=== PATIENT | female | born 1985 | race Caucasian/White ===

== ENCOUNTER 2023-07-27 07:29 | Day surgery (SDC) | payer OTHER ==
[2023-07-27] VITALS (243 sets, daily range): BP systolic 81–118; BP diastolic 33–81
[~2023-07-27] VITALS: Ht 160 cm; Wt 66.6 kg
[2023-07-27] MEDS ORDERED: CYANOCOBALAMIN 500 MCG/TAB ( B12) PO PRN (07:30)
[2023-07-27] MEDS ORDERED: FAMOTIDINE 20 MG/TAB PO PRN (07:30)
[2023-07-27] MEDS ORDERED: LACTATED RINGER'S 1,000 ML IV PRN ×3 (07:30→19:00)
[2023-07-27] MEDS ORDERED: diazePAM 5 MG/TAB PO PRN ×2 (07:30→08:30)
[2023-07-27] MEDS ORDERED: SCOPOLAMINE 1.5 MG DIS TD PRN (07:30)
[2023-07-27] MEDS ORDERED: ALBUTEROL SULFATE 2.5 MG VIAL IN PRN (07:30)
[2023-07-27] MEDS ORDERED: cloNIDine HCL 0.1 MG/TAB PO PRN (07:30)
[2023-07-27] MEDS ORDERED: PANTOPRAZOLE SODIUM Sesquihydr 40 MG/TAB PO PRN (07:30)
[2023-07-27] MEDS ORDERED: ASCORBIC ACID 3,000 MG in SODIUM CHLORIDE 0.9% 1,000 ML IV SCH (08:00)
[2023-07-27] MEDS ORDERED: ASCORBIC ACID 4,000 MG in SODIUM CHLORIDE 0.9% 1,000 ML IV SCH (08:00)
[2023-07-27] MEDS ORDERED: XANAX2 MG PO (08:53)
[2023-07-27] MEDS ORDERED: AFRIN PUMP MIS0.05 % IN (08:54)
[2023-07-27 08:55] LABS: BASO% 0.5 % (0-3); EOS% 17.7 % (0-8); HEMATOCRIT 41.9 % (37.0-47.0); HEMOGLOBIN 13.8 g/dl (12.0-16.0); IMMATURE GRANULOCYTES 0.2 % (0.0-5.0); LYMPH% 27.3 % (15-41); MEAN CELL VOLUME 82.8 fL CALC (80.0-100.0); MEAN CORPUSCULAR HGB 27.3 pG CALC (26.0-32.0); MEAN CORPUSCULAR HGB CONC 32.9 g/dL CAL (32.0-36.0); MONO% 8.1 % (2-13); NEUT# 3.86 thou/uL (2.00-7.15); NEUT% 46.2 % (42-76); RED BLOOD COUNT 5.06 mill/uL (4.20-5.60)
[2023-07-27] MEDS ORDERED: OCTREOTIDE ACETATE 100 MCG/VIAL SDV SC PRN (10:00)
[2023-07-27] MEDS ORDERED: cloNIDine HCL 0.1 MG/TAB VT PRN (10:00)
[2023-07-27] MEDS ORDERED: ROCURONIUM BROMIDE 10 MG/ML 5ML VIAL IV PRN (10:00)
[2023-07-27] MEDS ORDERED: PROPOFOL 10 MG/ML 100ML VIAL IV PRN (10:00)
[2023-07-27] MEDS ORDERED: ONDANSETRON HCl 4 MG/2 ML SDV IV PRN ×3 (10:00→19:00)
[2023-07-27] MEDS ORDERED: THIAMINE HCL 100 MG/ML 2ML VIAL IV PRN (10:00)
[2023-07-27] MEDS ORDERED: MAGNESIUM SULFATE HEPTAHYDRATE 100 ML IV PRN (10:00)
[2023-07-27] MEDS ORDERED: LIDOCAINE HCL 1% (10MG/ML) 100 MG/10 ML MDV VT PRN ×2 (10:00)
[2023-07-27] MEDS ORDERED: LIDOCAINE HCL 1% (10MG/ML) 100 MG/10 ML MDV IV PRN ×2 (10:00→16:55)
[2023-07-27] MEDS ORDERED: SUCCINYLCHOLINE CHLORIDE 20 MG/ML 10ML VIAL IV PRN (10:00)
[2023-07-27] MEDS ORDERED: NALTREXONE HCL 50 MG/TAB VT PRN (10:00)
[2023-07-27] MEDS ORDERED: PROPOFOL 100 ML IV PRN (10:00)
[2023-07-27] MEDS ORDERED: DEXAMETHASONE SOD. PHOSPHATE 10 MG/ML VIAL IV PRN (10:00)
[2023-07-27] MEDS ORDERED: MIDAZOLAM HCL 2 MG/2 ML VIAL IV PRN (10:00)
[2023-07-27] MEDS ORDERED: diazePAM 5 MG/TAB VT PRN (10:00)
[2023-07-27] MEDS ORDERED: cloNIDine HYDROCHLORIDE 100 MCG/ML 10 ML INJ IV PRN (10:00)
[2023-07-27] MEDS ORDERED: STERILE WATER FOR IRRIGATION 1,000 ML BTL IR PRN (10:00)
[2023-07-27] MEDS ORDERED: DiphenhydrAMINE HCL 50 MG/ML SDV IV PRN (10:00)
[2023-07-27 10:21] LABS: ALBUMIN 3.8 g/dL (3.2-5.0); ALKALINE PHOSPHATASE 65 u/l (38-126); ANION GAP 8 (6-22 (CALC)); BILIRUBIN, TOTAL 0.2 mg/dL (0.02-1.3); BUN 17 mg/dL (7-17); BUN/CREATININE RATIO 25 (12-20 (CALC)); CARBON DIOXIDE 34 mmol/l (22-30); CHLORIDE 103 mmol/l (95-108); CREATININE 0.7 mg/dL (0.5-1.0); GFR FOR AFR.AMER. > 60 ML/MIN (>=60 (CALC)); GFR OTHER RACES > 60 ML/MIN (>=60 (CALC)); POTASSIUM 4.2 mmol/l (3.5-5.1); SGOT/AST 33 u/l (14-36); SODIUM 139 mmol/l (137-146); TOTAL PROTEIN 6.3 g/dL (6.3-8.2)
[2023-07-27] MEDS ORDERED: POTASSIUM CHLORIDE 20 MEQ/100 ML BAG IV PRN (10:30)
[2023-07-27] MEDS ORDERED: NALTREXONE50 MG PO (13:16)
[2023-07-27] MEDS ORDERED: CLONIDINE0.1 MG PO (13:16)
[2023-07-27] MEDS ORDERED: KLONOPIN2 MG PO (13:17)
[2023-07-27] MEDS ORDERED: KETOROLAC TROMETHAMINE 30 MG/ML SDV IV PRN ×2 (16:50→19:00)
[2023-07-27] MEDS ORDERED: diazePAM 5 MG/TAB PO ONE (16:50)
[2023-07-27] MEDS ORDERED: ACETAMINOPHEN 1,000 MG/100 ML VIAL IV PRN ×2 (16:55→19:00)
[2023-07-27] MEDS ORDERED: PATIENT' OWN MED CONTROLLED 1 EA DOSE IV PRN (17:00)
[2023-07-27] MEDS ORDERED: diazePAM 10 MG/2 ML VIAL IV PRN (17:00)
[2023-07-27] MEDS ORDERED: ALPRAZolam 1 MG/TAB PO PRN (17:45)
[2023-07-27] MEDS ORDERED: PROMETHAZINE HCL 12.5 MG in SODIUM CHLORIDE 0.9% 50 ML IV PRN (19:00)
[2023-07-27] MEDS ORDERED: ACETAMINOPHEN 500 MG TAB PO PRN (19:00)
[2023-07-27] MEDS ORDERED: HALOPERIDOL LACTATE 5 MG/ML SDV IV PRN ×2 (19:00→22:55)
[2023-07-27] MEDS ORDERED: PROMETHAZINE HCL 25 MG in SODIUM CHLORIDE 0.9% 50 ML IV PRN (19:00)
[2023-07-27] MEDS ORDERED: DEXAMETHASONE SODIUM PHOSPHATE PF 10 MG/ML SDV IV PRN (19:00)
[2023-07-27] MEDS ORDERED: IPRATROPIUM-Albuterol 0.5MG-2.5MG/3 ML IN PRN (20:15)
[2023-07-27] MEDS ORDERED: OXYMETAZOLINE HCL 15 ML/BTL PRN (20:15)
[2023-07-27] MEDS ORDERED: cloNIDine HCL 0.1 MG/TAB PO SCH (23:00)
[2023-07-27] MEDS ORDERED: clonazePAM 1 MG/TAB PO SCH (23:00)
[2023-07-27] MEDS ORDERED: MIDAZOLAM HCL 2 MG/2 ML VIAL IV SCH (23:00)
[2023-07-28] MEDS ORDERED: cloNIDine HCL 0.1 MG/TAB PO PRN (04:00)
[2023-07-28] MEDS ORDERED: clonazePAM 1 MG/TAB PO PRN ×2 (04:00→08:00)
[2023-07-28 04:20] VITALS: BP 113/65
[2023-07-28 05:03] LABS: BASO% 0.1 % (0-3); EOS% 0.1 % (0-8); HEMATOCRIT 38.8 % (37.0-47.0); HEMOGLOBIN 13.3 g/dl (12.0-16.0); IMMATURE GRANULOCYTES 0.1 % (0.0-5.0); LYMPH% 14.6 % (15-41); MEAN CELL VOLUME 80.8 fL CALC (80.0-100.0); MEAN CORPUSCULAR HGB 27.7 pG CALC (26.0-32.0); MEAN CORPUSCULAR HGB CONC 34.3 g/dL CAL (32.0-36.0); MONO% 2.5 % (2-13); NEUT# 8.07 thou/uL (2.00-7.15); NEUT% 82.6 % (42-76); RED BLOOD COUNT 4.8 mill/uL (4.20-5.60); RED CELL DISTRI WIDTH 12.9 % (11.5-15.5)
[2023-07-28 05:18] LABS: ALBUMIN 3.8 g/dL (3.2-5.0); ALKALINE PHOSPHATASE 66 u/l (38-126); BUN 13 mg/dL (7-17); BUN/CREATININE RATIO 17 (12-20 (CALC)); CHLORIDE 109 mmol/l (95-108); CREATININE 0.8 mg/dL (0.5-1.0); GFR FOR AFR.AMER. > 60 ML/MIN (>=60 (CALC)); GFR OTHER RACES > 60 ML/MIN (>=60 (CALC)); MAGNESIUM 2.1 mg/dL (1.6-2.3); POTASSIUM 4.1 mmol/l (3.5-5.1); SGOT/AST 42 u/l (14-36); SODIUM 141 mmol/l (137-146); TOTAL PROTEIN 6.6 g/dL (6.3-8.2)
[2023-07-28 05:19] LABS: ANION GAP 13 (6-22 (CALC)); BILIRUBIN, TOTAL 0.5 mg/dL (0.02-1.3); CARBON DIOXIDE 23 mmol/l (22-30)
[2023-07-28 07:57] VITALS: BP 103/56
[2023-07-28] MEDS ORDERED: ACETAMINOPHEN 325 MG/TAB PO SCH (08:00)
[2023-07-28] MEDS ORDERED: PANTOPRAZOLE SODIUM Sesquihydr 40 MG/TAB PO SCH (08:00)
[2023-07-28] MEDS ORDERED: NALTREXONE HCL 50 MG/TAB PO SCH ×2 (08:00→13:00)
[2023-07-28] MEDS ORDERED: cloNIDine HCL 0.1 MG/TAB PO SCH (08:00)
[2023-07-28] MEDS ORDERED: ACETAMINOPHEN 500 MG TAB PO PRN (09:00)
[2023-07-28] MEDS ORDERED: Cholecalciferol 2,000 UNIT/TAB PO PRN (09:00)
[2023-07-28] MEDS ORDERED: MAGNESIUM OXIDE 400 MG/TAB PO PRN (09:00)
== END 2023-07-28 15:56 | disposition home or self-care (01) | DRG 897 ==
LOC: ANR 07:29 → MS2 07:30 → ANR 11:00 → MS2 17:10 → ANR 07-28 15:56
PROVIDERS: ATTEND Anesthesiology Critical Care Medicine
DX: F11.20 Opioid dependence, uncomplicated (principal)
CPT/HCPCS: J0131; J2354; J3475